=== PATIENT | female | born 1960 | race Two or more races ===

== ENCOUNTER 2019-12-06 00:21 | Emergency (ER) | payer BC ==
[~2019-12-06] VITALS: Ht 165.1 cm; Wt 49.9 kg
[~2019-12-06 00:21] MED LIST: ESOM20CA PO; FAMO-131 PO; RANI-655 PO
[2019-12-06 00:23] VITALS: BP 121/73
[2019-12-06] MEDS ORDERED: TDAP [DIPH/PERTUSSIS/TET] 0.5 ML VIAL IM ONE ×2 (00:30→01:01)
--- NOTE | 2019-12-06 00:31 | NUR ---
PATIENT CAME FROM HOME C/O GROUND LEVEL FALL. ACCORDING TO [facility], SHE HAD FEELL AND HAS A LACERATION TO HER BACK OF HEAD FROM HTITING MARBLE FLOOR. AAOX3. NO SOB. BREATHING EVENLY AND UNLABORED ON ROOM AIR. CONNECTED TO MONITOR. PATIENT CHANGED INTO GOWN.
--- NOTE | 2019-12-06 00:35 | NUR ---
PATIENT TAKEN TO CT.
--- NOTE | 2019-12-06 00:44 | NUR ---
RETURNED FROM CT.
[2019-12-06] MEDS ORDERED: GELATIN SPONGE,ABSORBABLE 1 SPONGE SPONGE TP ONE ×2 (01:05→01:30)
--- NOTE | 2019-12-06 01:50 | NUR ---
DAUGHTER ARRIVED OUTSIDE TO PICK PATIENT UP.
--- NOTE | 2019-12-06 01:55 | NUR ---
Patient is ambulatory with a steady gait.
--- NOTE | 2019-12-06 01:59 | NUR ---
Patient discharged to home in stable condition. Written and verbal after care instructions given. Patient verbalizes understanding of instruction.
== END 2019-12-06 02:01 | disposition home or self-care (01) ==
LOC: ER 00:25 → EDBD 00:25 → ER 02:01
DX: S01.80XA Unspecified open wound of other part of head, initial encounter (principal); F10.129 Alcohol abuse with intoxication, unspecified; F17.200 Nicotine dependence, unspecified, uncomplicated; Z88.0 Allergy status to penicillin; Z98.890 Other specified postprocedural states; Z79.899 Other long term (current) drug therapy; W18.09XA Striking against other object with subsequent fall, initial encounter; Y93.89 Activity, other specified; Y92.89 Other specified places as the place of occurrence of the external cause; Y99.8 Other external cause status; Y90.9 Presence of alcohol in blood, level not specified
CPT/HCPCS: 70450; 72125; 90471; 90715; 99285; A6403 ×2